=== PATIENT | male | born 1995 | race Caucasian/White ===

== ENCOUNTER 2017-01-31 13:37 | Emergency (ER) | payer BC ==
[2017-01-31 13:50] VITALS: BP 117/78; PULSE 97; RESP 18; TEMP 98.6; O2SAT 98
--- NOTE | 2017-01-31 14:30 | EDPHY ---
H & P Smoking Status: Never smoked <Cari Hernandez - Last Filed: 01/31/17 14:28> <Arsenio Tamez - Last Filed: 01/31/17 14:42> Time Seen by Provider: 01/31/17 14:21 HPI/ROS: CHIEF COMPLAINT: Sore throat, fatigue HISTORY OF PRESENT ILLNESS: 22-year-old male presents to the emergency department by private vehicle complaining of sore throat and fatigue since yesterday. He was having some dysphagia today. No fevers or chills. Although yesterday he felt a bit sweaty. No cough. No rhinorrhea or nasal congestion. He has very little appetite. He has been very tired. No known mono exposure or strep exposure. No recent travel. No rash. REVIEW OF SYSTEMS: Constitutional: No fever, no chills. Eyes: No double or blurry vision. ENT: sore throat. Respiratory: No cough, no shortness of breath. Cardiac: No chest pain. Gastrointestinal: No abdominal pain, vomiting or diarrhea. Genitourinary: No dysuria. Musculoskeletal: No neck or back pain. Skin: No rashes. Neurological: No headache. (Cari Hernandez) Past Medical/Surgical History: Negative (Cari Hernandez) Social History: [employer] student from [place] (Cari Hernandez) Physical Exam: General Appearance: Alert, no distress.37.0, 98% on room air Eyes: Pupils equal and round. Extraocular motions are all intact. ENT: Mouth: Mucous membranes moist. Posterior pharyngeal injection, 2+ enlarged tonsils, exudate Respiratory: No wheezing, rhonchi, or rales, lungs are clear to auscultation. Cardiovascular: Regular rate and rhythm. Gastrointestinal: Abdomen is soft and nontender, no masses, no rebound or guarding, bowel sounds normal. Neurological: Alert and oriented x 3, cranial nerves II through XII grossly intact Skin: Warm and dry, no rashes. Musculoskeletal: Nontender to palpate along the cervical, thoracic or lumbar spine. Neck is supple. Extremities: Full range of motion and no peripheral edema. Psychiatric: Patient is oriented X 3, there is no agitation. (Cari Hernandez) Constitutional: Initial Vital Signs Temperature (C) 37 C 01/31/17 13:47 Heart Rate 97 01/31/17 13:47 Respiratory Rate 18 01/31/17 13:47 Blood Pressure 117/78 01/31/17 13:47 O2 Sat (%) 98 01/31/17 13:47 O2 Delivery Mode Room Air Allergies/Adverse Reactions: No Known Allergies Allergy (Unverified 01/31/17 13:46) Home Medications: Medication Instructions Recorded NK [No Known Home Meds] 01/31/17 Medical Decision Making <DavidDomoniqueCari M - Last Filed: 01/31/17 14:28> <Arsenio Tamez - Last Filed: 01/31/17 14:42> ED Course/Re-evaluation: The patient has a positive strep. He has pharyngeal erythema on examination. I plan to treat the patient's strep pharyngitis with Keflex and single dose of Prednisone. The patient additionally complains of abdominal pain and is concerned about mono. I recommend the patient avoid full-contact sports. He has been instructed to follow up with [facility] for ongoing symptoms. Please see Cari's note for full HPI. (Arsenio Tamez) - Data Points Laboratory Results: 01/31/17 13:50 Group A Strep Screen POSITIVE H (NEGATIVE) Departure <JoannaingridCari Brooks - Last Filed: 01/31/17 14:28> <Arsenio Tamez - Last Filed: 01/31/17 14:42> - Departure Disposition: Home, Routine, Self-Care Clinical Impression: Strep pharyngitis Condition: Good Instructions: Strep Throat (ED) Additional Instructions: Take full course of antibiotics as directed. Take prednisone as prescribed. Drink plenty of fluids. I recommend no full-contact sports while you continue to have symptoms. Return if you develop new or worsening symptoms. Referrals: [facility],. [Clinic] - As per Instructions Report Scribed for: Arsenio Tamez Report Scribed by: Peri Lamas Date of Report: 01/31/17 Time of Report: 14:36 <Arsenio Tamez - Last Filed: 01/31/17 14:42>
== END 2017-01-31 15:21 | disposition home or self-care (01) ==
DX: J02.0 Streptococcal pharyngitis (principal)